=== PATIENT | female | born 1980 | race Caucasian/White ===

== ENCOUNTER 2023-10-17 13:09 | Outpatient (REF) | payer SELFPAY ==
--- NOTE | 2023-10-17 11:40 | PAPFT_PTH ---
PATIENT: Evelia Snyder LOC: [facility] U#:[id number] AGE/SX: 42/F ROOM: RE10/17/[address]: Nayely Heredia MD : 1980 BED: DIS: 10/17/2023 SPEC #: [id number] RECD: 10/17/23 13:19 STATUS: PRATIBHA REElif #: [id number] ROSEY: 10/17/23 11:[address]: Nayely Heredia DEPT: [facility] Cytology RECD BY: Amanda Hassan ENTERED: 10/17/23 13:20 SP TYPE: PAPFT OT DR: Unknown,Unknown Tissues: 1 - CX/ENDOCX FOR PAP SMEARS Procedures: PAP THIN PREP/[facility] Screening HPV DNA PROBE Comments: [id number] (HPV 16 & 18/45) (CHLAMYDIA/GC)
--- NOTE | 2023-10-17 11:45 | SKI_PTH ---
PATIENT: Evelia Snyder LOC: [facility] U#:[id number] AGE/SX: 42/F ROOM: RE10/17/[address]: Nayely Heredia MD : 1980 BED: DIS: 10/17/2023 SPEC #: [id number] RECD: 10/17/23 13:15 STATUS: PRATIBHA REElif #: [id number] ROSEY: 10/17/23 11:[address]: Nayely Heredia DEPT: Surgical Specimen RECD BY: Amanda Hassan ENTERED: 10/17/23 13:16 SP TYPE: LEIDA DE LA GARZA DR: Unknown,Unknown Tissues: 1 - SKIN BIOPSY(SHAVE/PUNCH) Procedures: SKIN LEVEL 4 Comments: [id number]
[2023-10-25 16:22] LABS: Chlamydia Result Negative (Negative); GC Result Negative (Negative)
== END 2023-10-17 13:10 | disposition home or self-care (01) ==
LOC: LBN 13:09
PROVIDERS: Visit Provider Obstetrics & Gynecology
DX: Z11.3 Encounter for screening for infections with a predominantly sexual mode of transmission (principal); N90.9 Noninflammatory disorder of vulva and perineum, unspecified; Z12.4 Encounter for screening for malignant neoplasm of cervix; B07.9 Viral wart, unspecified
CPT/HCPCS: 87491; 87591; 88142; 87624; 88305

== ENCOUNTER 2023-10-17 14:29 | Outpatient (CLI) | payer SELFPAY ==
[2023-10-25 16:20] LABS: HBs Antibody, Qual Positive (See Note); HBs Antibody, Quant >1000.0 mIU/mL (See Note); HIV-1/2 Ag & Ab Screen Negative (Negative); Hepatitis B Core Antibody Negative (Negative); Hepatitis B surface Ag Negative (Negative); Hepatitis C Ab w Rflx HCV PCR Negative (Negative); Syphilis Serology (RPR) Negative (Negative)
== END 2023-10-17 14:30 | disposition home or self-care (01) ==
LOC: LBO 14:30
PROVIDERS: Visit Provider Obstetrics & Gynecology
DX: Z11.3 Encounter for screening for infections with a predominantly sexual mode of transmission (principal)
CPT/HCPCS: 36415; 86704; 86706; 86803; 87340; 87389; 86592

== ENCOUNTER → 2023-10-31 13:19 | Outpatient (CLI) | payer SELFPAY ==
--- NOTE | 2023-10-31 12:00 | DI.RAD_ITS ---
Exam(s) XR ELBOW LT COMPLETE EXAM: XR ELBOW LT COMPLETE CLINICAL HISTORY: elbow pain, left M25.522. TECHNIQUE: 2D digital imaging was performed of the left elbow. Three images were obtained. AP, lat eral and oblique views were obtained. COMPARISON: No exams were available for comparison FINDINGS: BONES: No acute fracture is present. No bony destructive lesion is seen. JOINTS: The elbow is normally aligned. No joint effusion is seen. SOFT TISSUE: Normal. IMPRESSION: Unremarkable radiographs of the left elbow. DATA REPOSITORY: RADIATION DOSE DELIVERED:
== END ==
PROVIDERS: Visit Provider Physician Assistant
DX: M25.522 Pain in left elbow (principal)
CPT/HCPCS: 73080